=== PATIENT | female | born 1945 | race Caucasian/White ===

== ENCOUNTER 2017-03-29 09:38 | Outpatient (CLI) | payer BC ==
[~2017-03-29 09:38] MED LIST: Gadobenate Dimeglumine 529 MG/1 ML (20ML VIAL) ONE
--- NOTE | 2017-03-29 11:40 | MRI ---
MRI BRAIN WITH AND WITHOUT CONTRAST: Clinical history: Hydrocephalus with history of altered mental status. Comparison: 08-13-16 CT head exam. FINDINGS: The ventricular system is grossly stable in size/volume to prior head CT with re-demonstration of the diffuse white matter signal alteration throughout each cerebral hemisphere. There is also pontine gl iosis. Numerous foci of punctate susceptibility are present throughout the brain parenchyma with a mo re notable site of hemorrhagic susceptibility at the left cerebellar tentorium, medially. There is no enhancing intraaxial mass. There is prominent bilateral mastoid fluid. Imaged skull base flow voids are patent. There is scattered mucosal thickening of the paranasal sinuses. IMPRESSION: 1. 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 There are numerous superimposed punctate susceptibility foci which may indicate entities such as amyloid angiopathy in a patient of this age. 2. Mild prominence of ventricular system, grossly stable, given differences in imaging modalities to the prior head CT, 08-13-16. Recommend clinical correlation. POS: FIDENCIO
== END 2017-03-29 09:39 | disposition home or self-care (01) ==
LOC: SCSMRI 09:38
PROVIDERS: ATTEND Psychiatry & Neurology Neurology
DX: G91.9 Hydrocephalus, unspecified (principal); G93.49 Other encephalopathy
CPT/HCPCS: 70553; A9579

== ENCOUNTER 2017-04-18 14:30 | Outpatient (CLI) | payer BC ==
--- NOTE | 2017-04-18 15:42 | RAD ---
NEUTRAL AND FLEXION AND EXTENSION LATERAL RADIOGRAPHS OF LUMBAR SPINE: Date: 04/18/17 COMPARISON: None. HISTORY: Leg weakness, dizziness, lumbar radiculopathy. FINDINGS: The neutral lateral exam demonstrates anterolisthesis of L4 on L5 measuring approximately 7.0 mm. The re is disc space narrowing with anterior osteophyte formation at L2-3 and L3-4. There is mild retroli sthesis at L3-4 measuring approximately 5.0 mm. Upon flexion, the retrolisthesis at L3-4 is no longer visualized and the anterolisthesis of L4 on L5 increases to 10.0 mm. With extension, retrolisthesis at L3-4 measures in the 3.0 mm range. Anterolisthesis at L4-5 on exten candelario measures approximately 8.0 mm. IMPRESSION: L3-4 retrolisthesis and L4-5 anterolisthesis as described above. POS: FIDENCIO
== END 2017-04-18 14:31 | disposition home or self-care (01) ==
LOC: TBSIIMAG 14:30
PROVIDERS: ATTEND Neurological Surgery
DX: M54.16 Radiculopathy, lumbar region (principal); M43.16 Spondylolisthesis, lumbar region
CPT/HCPCS: 72100

== ENCOUNTER 2017-05-01 08:21 | Day surgery (SDC) | payer BC ==
[2017-04-28 12:09] VITALS: BMI 28.3
[~2017-05-01 08:21] MED LIST changes: +FLU VACC TS2017-18 (>65YR) 0.5 ML SYRINGE IM ONE; -Gadobenate Dimeglumine 529 MG/1 ML (20ML VIAL) ONE; +Prevnar 13-Val Conj/PF 0.5 ML SYRINGE IM ONE
[2017-05-01 13:36] VITALS: BP 163/87; TEMP 98.5
--- NOTE | 2017-05-01 15:06 | RAD ---
FLUOROSCOPICALLY GUIDED LUMBAR PUCTURE: DATE: 05-01-17 History: 72-year-old female with normal pressure hydrocephalus. Technique: Signed informed consent was obtained. Patient was examined by Physical Therapy prior to the procedure . Patient was placed prone on fluoroscopy table. From a right paramedian approach, a 20 gauge spinal needle was advanced into the spinal canal along midline without difficulty. Upon brisk return of tiki r CSF, a 3-way stopcock was placed on the spinal needle, and the patient was turned in the left later al decubitus position. An manometer was placed on the stopcock and opening pressure was measured. Nex t, CSF was drained. Closing pressure was measured. Spinal needle was removed. Patient tolerated the p rocedure well. No complications. The patient had a second physical examination by Physical Therapy af ter the lumbar puncture. The patient was sitting upright and eating afterwards, without any complaint s, including lack of headache. FINDINGS: Fluoroscopic images demonstrate hemostat marking the L1-2 level. A lateral fluoroscopic spot image de monstrates the spinal needle within the spinal canal at the L2 level (review of previous lumbar spine MRI demonstrated that the conus medullaris terminates at L1-2 level). Opening pressure was 23 cm H20 . Closing pressure was 0. A total of at least 27 ml was collected in vials, then discarded. If some o f the CSF that dripped on the sterile drape is included, the estimated total volume is probably up to 30 ml. IMPRESSION: 1. Successful lumbar puncture. 2. Opening pressure of 23 cm CSF. Closing pressure is 0. 3. At least 27, and possibly up to 30 ml, of CSF was drained. 4. See separate report by physical therapist regarding pre and post procedure findings on examination . POS: FIDENCIO
== END 2017-05-01 13:30 | disposition home or self-care (01) ==
LOC: RAD 08:21
PROVIDERS: ATTEND Neurological Surgery
PROC: 009U3ZZ Drainage of Spinal Canal, Percutaneous Approach (ICD-10-PCS; principal; 2017-05-01)
DX: G91.9 Hydrocephalus, unspecified (principal); F09 Unspecified mental disorder due to known physiological condition; M54.16 Radiculopathy, lumbar region; Z88.0 Allergy status to penicillin; Z88.8 Allergy status to other drugs, medicaments and biological substances
CPT/HCPCS: 62270; G8978-GP-CI; G8979-GP-CI

== ENCOUNTER 2017-05-16 08:48 | Outpatient (CLI) | payer BC ==
--- NOTE | 2017-05-16 12:06 | MRI ---
LUMBAR SPINE MRI WITHOUT CONTRAST: Date: 05/16/17 HISTORY: Lumbar radiculopathy. Low back pain with bilateral lateral thigh pain for a few months. COMPARISON: None. TECHNIQUE: Lumbar spine MRI is performed without intravenous Gadolinium administration. Multisequential, multipl taras imaging performed. FINDINGS: An appropriate T1 marrow signal intensity of lumbar vertebra. Lumbar spine vertebral body height is m aintained. No fracture. 2.6 mm of retrolisthesis of L2 upon L3, 3.1 mm retrolisthesis of L3 upon L4, and 4.8 mm anterolisthesis of L4 upon L5. Symmetric signal intensity of the psoas muscles. There is a large cyst emanating from the mid pole of the right kidney measuring 4.4 cm. Conus medullaris termin ates at the mid L1 level. T12-L1: Adequate disc hydration. No significant central canal stenosis or foraminal narrowing. L1-L2: Desiccation without significant loss of disc space height. No significant central canal stenosis. For sourav patent. L2-L3: Desiccation with mild loss of disc space height. No high grade central canal stenosis. Mild left fora paul narrowing. Right neural foramen patent. L3-L4: Desiccation with moderate loss of disc space height. Generalized disc bulge, ligamentum flavum thicke dmitri, and facet hypertrophy result in mild central canal stenosis. Narrowing of both subarticular zon es with partial obscuration of bilateral traversing L4 nerve roots. Moderate to severe right foramina l narrowing. Left neural foramen is patent. L4-L5: Desiccation without significant loss of disc space height. Generalized disc bulge, ligamentum flavum thickening, and facet hypertrophy result in moderate to severe central canal stenosis. There is fluid signal intensity in both interarticular facet joints. Moderate to severe right and moderate left for aminal narrowing. L5-S1: Desiccation without significant loss of disc space height. Central disc bulge with encroachment upon both subarticular zones. Mass effect without obscuration of bilateral traversing S1 nerve roots, righ t greater than left. Overall, no significant stenosis of the thecal sac. Moderate bilateral foraminal narrowing. IMPRESSION: Degenerative changes of lumbar spine as above. POS: OFF
== END 2017-05-16 08:49 | disposition home or self-care (01) ==
LOC: TBSIIMAG 08:48
PROVIDERS: ATTEND Neurological Surgery
DX: M47.26 Other spondylosis with radiculopathy, lumbar region (principal)
CPT/HCPCS: 72148

== ENCOUNTER 2017-06-21 09:30 | Inpatient (IN) | payer BC, MEDICARE ==
[2017-06-21 10:19] VITALS: BMI 26.9
--- NOTE | 2017-06-27 13:34 | HP ---
HISTORY OF PRESENT ILLNESS: Viry Cardoso is a 72-year-old patient, followed by Dr. Hebert Olvera and Ryan Canas. The patient has been diagnosed with normal pressure hydrocephalus. She has been having p roblems with balance and gait and deteriorating mental function with cognitive decline. She has been in the banking business in the past, had been unable to work. Patient is planned to have a ventricu loperitoneal shunt by Dr. Hebert Olvera tomorrow. I have been asked to see her regarding laparoscopic p lacement of the peritoneal end of the shunt. We will plan this under general anesthesia. Risks and benefits discussed. Patient also has spinal stenosis and will have that addressed at a later time. PAST MEDICAL HISTORY: Noninsulin dependent diabetes mellitus, type 2; hypertension; osteoporosis; hy drocephalus; spinal stenosis; leg pain; sciatica to be addressed later. PAST SURGICAL HISTORY: Appendectomy and cholecystectomy. MEDICATIONS: Glyburide 5 mg a day, metoprolol 50 mg twice a day, amlodipine 5 mg once a day, irbesar bonilla 300 mg once a day, thyroid replacement, CoQ10, vitamin C, and B12. ALLERGIES: PENICILLIN. REVIEW OF SYSTEMS: Ten point noncontributory. PHYSICAL EXAMINATION: VITAL SIGNS: 147 pounds, 60 inches tall, 195/94, 99.1 degrees. LUNGS: Clear to auscultation. CARDIAC: Regular rate and rhythm without murmur, rub, or gallop. ABDOMEN: Soft, nontender. EXTREMITIES: Unremarkable. Patient has abnormal gait and requires assistance to ambulate due to bal ance problems, cognitive function has declined as her provides most of the medical history an d clarifies her history. ASSESSMENT AND PLAN: Normal pressure hydrocephalus. Plan laparoscopic placement of the peritoneal d ialysis catheter. Risk of infection, bleeding, reoperation discussed. Questions answered. We will plan this tomorrow.
--- NOTE | 2017-06-27 23:27 | HP ---
HISTORY OF PRESENT ILLNESS: Ms. Cardoso is a pleasant 72-year-old woman who presents for discussion at our clinic of two separate issues, the first being evaluation as referred by Dr. Felton of her poss ible normal pressure hydrocephalus where she has had an initial lumbar tap with 15 mL with some mild improvement and incontinence, gait, cognitive function for about a day or two and then a larger high- volume tap performed by [facility] that the therapist evaluated both pre and post-procedure as well as the family noted profound improvement in all of these symptoms as well. The second complaint is that of right lower extremity pains and right lower back pain with a new MR I from [facility] reveals foraminal compromise that accounts for this. She has an MRI of the brain t hat reveals significant T2 hyperintensity through about the subcortical white matter surrounding the ventricle that appears to represent the transependymal flow bilaterally. She also has enlargement of the bilateral and lateral ventricles, likely indicating presence of normal pressure hydrocephalus. PAST MEDICAL HISTORY: Significant for diabetes, hypertension, osteoporosis, cognitive decline, back and leg problems. PAST SURGICAL HISTORY: Appendectomy and cholecystectomy. CURRENT MEDICATIONS: Glyburide, metoprolol, amlodipine, irbesartan, vitamin B12. ALLERGIES: PENICILLIN. PHYSICAL EXAMINATION: Patient is alert and oriented x2. She does have a slow and magnetic gait. He r motor exam is normal in the upper and lower extremities and cranial nerves are all intact. ASSESSMENT: Normal pressure hydrocephalus. PLAN: Dr. Olvera met with the patient, reviewed imaging, and then ultimately advocated for a COMMISSIONER [employer] shunt placement. He explained to the patient the risks, benefits, and alternatives to the procedure. The patient expressed understanding and would like to move forward with surgery as discussed. I do delaney ana cristina the patient is mentally competent to make medical decisions for herself and will move forward wit h surgery as planned. This is Royer Omer PA-C, dictating for Dr. Olvera.
[2017-06-28] MEDS ORDERED: Clindamycin/D5W 900 mg/50 ml Premix Bag ONE (06:18)
[2017-06-28] MEDS ORDERED: Levofloxacin 500 mg/D5W 100 ml Premix Bag ONE (06:18)
[2017-06-28] MEDS ORDERED: Lidocaine 0.5%/Epinephrine 1:200,000 50 ml Vial ONE (06:31)
[2017-06-28] MEDS ORDERED: Bupivacaine/Epinephrine 0.25% 30 ML VIAL ONE (06:31)
[2017-06-28] MEDS ORDERED: Sodium Chloride 0.9% 10 ML ONE (06:37)
[2017-06-28 06:54] LABS: Hemoglobin 14.6 g/dL (12.0-16.0); Mean Corpuscular HGB CONC 34.2 g/dL (32.0-36.0); Mean Corpuscular Hemoglobin 32.7 pg (27.0-31.0); Mean Corpuscular Volume 95.6 fl (81.0-99.0); Mean Platelet Volume 6.6 fL (7.4-10.4); Platelet Count 359 thou/uL (130-400); RBC Distribution Width 13.5 % (11.5-14.5); Red Blood Cell (RBC) Count 4.46 mill/uL (4.20-5.40); White Blood Cell (WBC) Count 7.9 thou/uL (4.8-10.8)
[2017-06-28] MEDS ORDERED: Fentanyl 100 MCG/2 ML VIAL ONE (07:08)
[2017-06-28 07:12] LABS: Anion Gap 17 mmol/L (10-20); BUN (Urea Nitrogen) 20 mg/dL (9.8-20.1); Calc. Creatinine Clearance 55 mL/min (70-130); Calcium 9.6 mg/dL (7.8-10.44); Carbon Dioxide 22 mmol/L (23-31); Chloride 100 mmol/L (98-107); Estimated GFR-MDRD 59; Glucose 173 mg/dL (83-110); Potassium 4.1 mmol/L (3.5-5.1); Sodium 135 mmol/L (136-145)
[2017-06-28] MEDS ORDERED: Bacitracin Zinc Ointment 30 gm TUBE ONE (08:22)
[2017-06-28] MEDS ORDERED: Meperidine HCl/PF 25 MG/ML VIAL SLOW IVP PRN (08:23)
[2017-06-28] MEDS ORDERED: Morphine Sulfate 2 MG/ML SYRINGE SLOW IVP PRN (08:23)
[2017-06-28] MEDS ORDERED: Promethazine HCl 25 MG/ML VIAL IM PRN (08:23)
[2017-06-28] MEDS ORDERED: Promethazine HCl 25 MG/ML VIAL SLOW IVP PRN (08:23)
[2017-06-28] MEDS ORDERED: Ondansetron HCl/PF 4 MG/2 ML Vial IVP PRN ×2 (08:23→08:45)
[2017-06-28] MEDS ORDERED: HYDROmorphone 2 MG/ML VIAL SLOW IVP PRN (08:23)
[2017-06-28] MEDS ORDERED: diphenhydrAMINE 50 MG/ML VIAL IVP PRN (08:45)
[2017-06-28] MEDS ORDERED: Bisacodyl 10 MG SUPP PR PRN (08:45)
[2017-06-28] MEDS ORDERED: Acetaminophen/Codeine 30-300mg Tablet PO PRN ×2 (08:45)
[2017-06-28] MEDS ORDERED: Morphine 4 MG/ML VIAL SLOW IVP PRN (08:45)
[2017-06-28] MEDS ORDERED: Acetaminophen 500 MG TAB PO PRN (08:45)
[2017-06-28] MEDS ORDERED: Mag-Al 1200 mg/1200 mg/30 ML UDCUP PO PRN (08:45)
[2017-06-28] MEDS ORDERED: HYDROmorphone 0.5 MG/0.5 ML SYRINGE ONE (08:47)
--- NOTE | 2017-06-28 09:06 | OP ---
DATE OF PROCEDURE: 06/28/2017 SURGEON: Serafin Olvera M.D. ENGRAVER [employer]: Royer Omer PA-C. INDICATION: Prevent neurologic decline. DIAGNOSIS: Normal pressure hydrocephalus. PROCEDURE PERFORMED: Placement of a ventriculoperitoneal shunt. ANESTHESIA: General. TECHNIQUE: The patient was brought into the operating room and placed on table in a supine position. A curvilinear incision was planned over the right occiput. Her abdomen was also prepped and draped for laparoscopic placement of the peritoneal portion of the tube to be performed by tiffany Talley h will be dictated in a separate operative note. Following prepping and draping and after an appropr iate operative pause, a curvilinear incision along the right occipital bone was opened and a single b urr hole was placed. The peritoneal catheter was then passed from the occipital incision down to a s ubxiphoid puncture site. A 6 cm ventricular catheter was passed over a stylet into the ventricular c avity and connected to the snap shunt assembly. The catheter was secured with suture. The wound was copiously irrigated. Hemostasis was maintained throughout. The wound was then closed in anatomic l barrios and a pressure dressing was applied. The peritoneal portion of the catheter was then carefully placed by Dr. Acevedo, which will again be dictated in a separate note. A programmable shunt valve w as placed and it was set initially to 1.5. There were no known procedural complications.
--- NOTE | 2017-06-28 09:16 | OP ---
DATE OF PROCEDURE: 06/28/2017 PREOPERATIVE DIAGNOSIS: Normal pressure hydrocephalus. POSTOPERATIVE DIAGNOSIS: Normal pressure hydrocephalus. PROCEDURE: Laparoscopic placement of ventriculoperitoneal shunt and into the peritoneum. Note, adhe sions around the umbilicus and upper midline from prior surgeries. SURGEON: Dr. Jesu Acevedo ANESTHESIA: General, local 0.25% Marcaine with epinephrine, 30 mL. DESCRIPTION OF PROCEDURE: Patient taken to the operating room where under general anesthesia, Dr. Abdullahi Olvera placed the intracranial portion of ACCOUNT REPRESENTATIVE shunt and tunneled it to the subxiphoid port. Once this was completed, I entered the room. An infraumbilical incision made and pneumoperitoneum to 15 mmHg obtained with the Veress needle, replacing it with a 5 port and there were noted to be some adhe sions that I was able to place the port inferiorly and to the right and then superiorly and a right l ateral subcostal incision made and a 5 port placed and the scope moved to this port. The 5 port plac ed through the subxiphoid incision under laparoscopic visualization into the abdominal cavity and a g rasper placed from 1 port into the subxiphoid port and the port removed and the ACCOUNT REPRESENTATIVE shunt grasped and placed intraabdominally. Pneumoperitoneum reduced. All instruments removed. Liver noted to be norm al. Grossly abdominal cavity noted be normal. All skin incisions approximated with interrupted subd ermal 4-0 Monocryl and subxiphoid incision approximated with subcutaneous tissues with 4-0 Monocryl, skin with subdermal 4-0 Monocryl and DermaGlue applied.
[2017-06-28] MEDS ORDERED: Promethazine HCl 25 MG/ML VIAL ONE (09:31)
[2017-06-28] MEDS ORDERED: Ubidecarenone 50 MG CAP PO SCH (11:30)
[2017-06-28] MEDS ORDERED: glyBURIDE 5 MG TAB PO SCH (11:30)
[2017-06-28] MEDS ORDERED: Metoprolol Tartrate 50 MG TAB PO SCH (11:30)
[2017-06-28] MEDS ORDERED: Ascorbic Acid 500 mg Chewable Tablet PO SCH (11:30)
[2017-06-28] MEDS ORDERED: Amlodipine 5 MG TAB PO SCH (11:30)
[2017-06-28] MEDS ORDERED: Ondansetron HCl/PF 4 MG/2 ML Vial ONE (13:10)
[2017-06-28] MEDS ORDERED: Propofol 200 MG/20 ML VIAL ONE (13:10)
[2017-06-28] MEDS ORDERED: Lidocaine 1% PF 5 ML VIAL ONE (13:10)
[2017-06-28] MEDS ORDERED: Glycopyrrolate 0.2 MG/ML 5 ML SYRINGE ONE (13:10)
[2017-06-28] MEDS ORDERED: Dexamethasone 20 MG/5 ML VIAL ONE (13:10)
[2017-06-28] MEDS ORDERED: Esmolol 100 MG/10 ML VIAL ONE (13:10)
[2017-06-28] MEDS: Sodium Chloride 0.9% 1,000 ML IV SCH ×2 (13:53→21:21)
[2017-06-28] MEDS: Clindamycin/D5W 900 MG in Premix Bag 1 BAG IVPB SCH ×2 (13:55→21:20)
[2017-06-28] MEDS: glyBURIDE 5 MG TAB PO SCH (13:56)
[2017-06-28] MEDS ORDERED: Calcium Carbonate + Vit D 1 TAB PO SCH (21:00)
[2017-06-28] MEDS: Metoprolol Tartrate 50 MG TAB PO SCH (21:19)
[2017-06-29] MEDS ORDERED: Clindamycin 150 MG CAP PO SCH (08:00)
[2017-06-29] MEDS: glyBURIDE 5 MG TAB PO SCH (08:59)
[2017-06-29] MEDS: Metoprolol Tartrate 50 MG TAB PO SCH (09:00)
[2017-06-29] MEDS ORDERED: Ascorbic Acid 500 mg Chewable Tablet PO SCH (09:00)
[2017-06-29] MEDS ORDERED: Amlodipine 5 MG TAB PO SCH (09:00)
[2017-06-29] MEDS ORDERED: Ubidecarenone 50 MG CAP PO SCH (09:00)
[2017-06-29] MEDS ORDERED: Stress 600 With Zinc 1 TAB PO SCH (09:00)
[2017-06-29 12:25] VITALS: TEMP 98.3
[2017-06-29] MEDS: ALPHA LIPOIC ACID 100 MG PO SCH ×2 (12:52→12:53)
[2017-06-29] MEDS: BACILLUS COAGULANS PO SCH ×2 (12:52→12:54)
[2017-06-29] MEDS: Sodium Chloride 0.9% 1,000 ML IV SCH (12:55)
[2017-06-29 17:43] VITALS: BP 128/76
[2017-06-30] MEDS ORDERED: Cholecalciferol (Vitamin D3) 400 UNITS TAB PO SCH (09:00)
[2017-06-30] MEDS ORDERED: Thyroid 30 MG TAB PO SCH (09:00)
== END 2017-06-29 15:50 | disposition home or self-care (01) | DRG 33 ==
LOC: SURG A 06-28 05:38 → SJJU 06-28 10:24
PROVIDERS: ADMIT Neurological Surgery; ATTEND Neurological Surgery
PROC: 00164J6 Bypass Cerebral Ventricle to Peritoneal Cavity with Synthetic Substitute, Percutaneous Endoscopic Approach (ICD-10-PCS; principal; 2017-06-28)
DX: G91.9 Hydrocephalus, unspecified (principal); E11.9 Type 2 diabetes mellitus without complications; G91.2 (Idiopathic) normal pressure hydrocephalus; I10 Essential (primary) hypertension; M81.0 Age-related osteoporosis without current pathological fracture; Z79.84 Long term (current) use of oral hypoglycemic drugs; M48.00 Spinal stenosis, site unspecified
CPT/HCPCS: 36415; 36416; 80048; 85027; A4216; G8978-GP-CJ; G8979-GP-CJ; G8980-GP-CJ; G8987-GO-CJ; G8988-GO-CI; J0131; J1100; J1170; J1956; J2001; J2405; J2550; J2704; J3010; J3490

== ENCOUNTER 2017-06-21 09:48 | Outpatient (CLI) | payer BC | END 2017-06-21 09:49 | disposition home or self-care (01) | LOC: LABBT 09:48 | PROVIDERS: ATTEND Neurological Surgery | DX: Z01.812 Encounter for preprocedural laboratory examination (principal); G91.9 Hydrocephalus, unspecified | CPT/HCPCS: 93005; 93010 ==